=== PATIENT | male | born 1940 | race Hispanic/Latino ===

== ENCOUNTER 2016-08-30 05:43 | Day surgery (SDC) | payer MEDICARE, OTHER ==
[2016-08-30] MEDS ORDERED: NACL 0.9% 500 ML 500 ML ONE (06:16)
[2016-08-30 06:51] LABS: Basophils % (Auto) 0.8 % (0.0-1.8); Eosinophils % (Auto) 2.8 % (0.0-4.3); Hematocrit 39.3 % (35.5-45.6); Hemoglobin 13.2 gm/dl (11.8-15.2); Mean Corpuscular HGB Conc 34 % (32-34); Mean Corpuscular Hemoglobin 30 pg (28-32); Mean Corpuscular Volume 88 fl (84-94); Platelet Count 170 K/mm3 (140-440); Red Blood Count 4.48 M/mm3 (3.65-5.03); White Blood Count 4.2 K/mm3 (4.5-11.0)
[2016-08-30] MEDS ORDERED: NACL 0.9% 500 ML 500 ML IV SCH (07:00)
[2016-08-30 07:01] LABS: INR 1.06 (0.87-1.13)
[2016-08-30 08:08] LABS: Anion Gap 17 mmol/L; Blood Urea Nitrogen 13 mg/dL (9-20); Calcium 8.8 mg/dL (8.4-10.2); Carbon Dioxide 24 mmol/L (22-30); Chloride 103.6 mmol/L (98-107); Glucose 115 mg/dL (75-100); Potassium 4.3 mmol/L (3.6-5.0); Sodium 140 mmol/L (137-145)
[2016-08-30] MEDS ORDERED: HEPARIN/NS 5000 UNIT/500ML(CATH LAB) 1,000 ML IR ONE (08:21)
[2016-08-30] MEDS ORDERED: XYLOCAINE 2% INFILTRATI ONE (08:22)
[2016-08-30] MEDS ORDERED: HEPARIN 10,000 UNITS/10 ML ONE (08:22)
[2016-08-30] MEDS ORDERED: CALAN ONE (08:22)
[2016-08-30] MEDS ORDERED: VERSED ONE (08:22)
[2016-08-30] MEDS ORDERED: SUBLIMAZE ONE (08:23)
[2016-08-30] MEDS: NITROGLYCERIN SYRINGE 3 ML ONE ×2 (08:55→08:56)
--- NOTE | 2016-08-30 09:09 | Short Stay Summary ---
Short Stay Documentation Date of service: 08/30/16 - History H&P: obtained from office - Allergies and Medications Current Medications: Allergies No Known Allergies Allergy (Verified 11/10/13 01:47) Home Medications Medication Instructions Recorded Confirmed Last Taken Type Aspirin [Adult Low Dose Aspirin EC] 81 mg PO DAILY 08/30/16 08/30/16 08/30/16 06 :00 History 324mg Levothyroxine [Synthroid] 112 mcg PO QAM 08/30/16 08/30/16 08/30/16 06:00 History Simvastatin [Zocor TAB] 10 mg PO DAILY 08/30/16 08/30/16 08/29/16 History Ubidecarenone [Coq-10] 100 mg PO DAILY 08/30/16 08/30/16 08/29/16 History Active Medications Sodium Chloride (Nacl 0.9% 500 Ml) 500 mls @ 50 mls/hr IV DIRECT MELITA Stop: 08/30/16 16:59 Last Admin: 08/30/16 07:13 Dose: 50 mls/hr - Physical exam General appearance: no acute distress Integumentary: no rash HEENT: Atraumatic Lungs: Clear to auscultation Breasts: deferred Heart: Regular rate Gastrointestinal: normal Male Genitourinary: deferred Female Genitourinary: deferred Rectal Exam: deferred Extremities: no ischemia Neurological: Normal gait - Brief post op/procedure progress note Date of procedure: 08/30/16 Pre-op diagnosis: Syncope, abnormal stress test Post-op diagnosis: same Procedure: LHC and LV gram Anesthesia: MAC Findings: See report Surgeon: JUANA ZUNIGA Estimated blood loss: none Pathology: none Condition: stable - Hospital course Hospital course: Uneventful - Disposition Condition at discharge: Good Disposition: DC-01 TO HOME OR SELFCARE Short Stay Discharge Plan Activity: advance as tolerated Weight Bearing Status: Partial Weight Bearing Diet: low cholesterol, low salt Wound: keep clean and dry Follow up with: ELDA BO MD [Primary Care Provider] - 7 Days
--- NOTE | 2016-08-30 10:24 | Prelim Cardiac Cath Report ---
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
[2016-08-30 11:37] VITALS: BP 166/88
--- NOTE | 2016-09-20 12:35 | Cardiac Catherization Report ---
LEFT HEART CATHETERIZATION INDICATION FOR PROCEDURE: Chest pain, abnormal myocardial perfusion scan. ORDERING PHYSICIAN: Dr. Brenda Loya. PROCEDURES PERFORMED: 1. Selective left and right coronary angiography. 2. Left ventriculography. DESCRIPTION OF PROCEDURE: After obtaining written consent, the patient was draped using sterile technique. A 2% lidocaine was injected into the right wrist. A 5-Tanzanian vascular sheath was inserted into the right radial artery. A 5-Tanzanian JL3.5 catheter was used to selectively engage the left coronary artery. A 5-Tanz[place] JR4 catheter was used to selectively engage the right coronary artery. A 5-T[place] JR4 catheter was used to hand inject the left ventriculogram. No complications occurred during the procedure. Hemostasis was achieved at the end of the procedure using manual pressure. ESTIMATED BLOOD LOSS: Minimal. SPECIMEN REMOVED: None. FINDINGS: HEMODYNAMICS: The aortic pressure was 125/73 with an LV systolic pressure of 123 mmHg and left ventricular end-diastolic pressure of 16 mmHg. No significant gradient was noted across left ventricular outflow tract. CARDIAC STRUCTURES: The left ventricle is normal in size and systolic function with an ejection fraction estimated at 60%. No regional wall motion abnormalities. CORONARY ANATOMY: 1. This is a right dominant circulation. The left main is angiographically normal. 2. The LAD has mild diffuse nonobstructive luminal irregularities. There is evidence of a 60% stenosis of the ostium of the first diagonal artery. 3. The left circumflex artery has mild luminal irregularities. 4. The right coronary artery has an anomalous takeoff from the left cusp with evidence of 30% tubular stenosis proximally. IMPRESSION: 1. 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 2. Normal left ventricular size and systolic function. 3. LVEDP measured at 16 mmHg. RECOMMENDATIONS: Continue medical therapy for underlying nonobstructive coronary artery disease. I doubt that this is the reason why he is passing out; however, a further evaluation is needed, consider CTA coronaries to evaluate the course of the right coronary artery. JOB# [id number] NICKI/EDIS
== END 2016-08-30 11:35 | disposition home or self-care (01) ==
LOC: OPU 05:43
PROVIDERS: ATTEND Internal Medicine
DX: I25.10 Atherosclerotic heart disease of native coronary artery without angina pectoris (principal); F41.9 Anxiety disorder, unspecified; F32.9 Major depressive disorder, single episode, unspecified; M10.9 Gout, unspecified; E03.9 Hypothyroidism, unspecified; G47.00 Insomnia, unspecified; E78.5 Hyperlipidemia, unspecified; Z79.899 Other long term (current) drug therapy; Z79.82 Long term (current) use of aspirin; Z85.89 Personal history of malignant neoplasm of other organs and systems; Z72.89 Other problems related to lifestyle; Z82.49 Family history of ischemic heart disease and other diseases of the circulatory system
CPT/HCPCS: 36415; 80048; 85025; 85610; 85730; 93005; 93010; 93458; C1894; J1644; J2250; J3010; J7040; Q9967

== ENCOUNTER 2016-09-25 07:35 | Day surgery (SDC) | payer MEDICARE, OTHER ==
[2016-09-25] MEDS ORDERED: NITROSTAT SL ONE (08:27)
[2016-09-25] MEDS ORDERED: LOPRESSOR IV ONE (08:28)
[2016-09-25 09:00] LABS: Anion Gap 14 mmol/L; BUN/Creatinine Ratio 21.25; Blood Urea Nitrogen 17 mg/dL (9-20); Calcium 8.8 mg/dL (8.4-10.2); Carbon Dioxide 25 mmol/L (22-30); Chloride 101.8 mmol/L (98-107); Glucose 94 mg/dL (75-100); Potassium 4.2 mmol/L (3.6-5.0); Sodium 137 mmol/L (137-145)
[2016-09-25] MEDS ORDERED: NACL ONE (09:29)
[2016-09-25 09:56] VITALS: BP 102/63
--- NOTE | 2016-09-26 08:28 | Cat Scan Report ---
CT ANGIO HEART STRUCTURE/MORPHOLOGY/FUNCTION: INDICATION: Congenital malformation of heart. COMPARISON: 03/20/[address] report. FINDINGS: A limited chest CT scan was carried out for evaluation of heart structure, morphology and function. This dictation is for the non-cardiac portion of the chest which was included. No definite hilar or mediastinal mass. Moderate, approximately 5 cm transverse hiatal hernia. Mild bibasilar scarring. No significant abnormality seen in included upper abdomen. IMPRESSION: Findings, as above. Please note that this exam is now available for interpretation. Thank you for the opportunity to participate in this patient's care.
== END 2016-09-25 10:00 | disposition home or self-care (01) ==
LOC: CATHLABREC 07:35 → EDSTATUS 08:45 → CATHLABREC 10:00
PROVIDERS: ATTEND Internal Medicine Cardiovascular Disease
DX: Q24.9 Congenital malformation of heart, unspecified (principal); K44.9 Diaphragmatic hernia without obstruction or gangrene
CPT/HCPCS: 36415; 75574; 80048; Q9967

== ENCOUNTER 2016-09-27 08:20 | Day surgery (SDC) | payer MEDICARE, OTHER ==
[2016-09-27] MEDS ORDERED: NACL 0.9% 500 ML 500 ML IV SCH (10:00)
[2016-09-27] MEDS ORDERED: NITROSTAT SL ONE ×2 (11:33→11:36)
[2016-09-27] MEDS ORDERED: ADRENALIN ONE (11:34)
[2016-09-27] MEDS ORDERED: ATROPINE 0.1% (CARDIAC) ONE ×2 (11:34)
--- NOTE | 2016-09-27 12:05 | Short Stay Summary ---
Short Stay Documentation Date of service: 09/27/16 - History H&P: obtained from office - Allergies and Medications Current Medications: Allergies No Known Allergies Allergy (Verified 11/10/13 01:47) Home Medications Medication Instructions Recorded Confirmed Last Taken Type Aspirin [Adult Low Dose Aspirin EC] 81 mg PO DAILY 08/30/16 09/27/16 09/24/16 History 81mg Levothyroxine [Synthroid] 112 mcg PO QAM 08/30/16 09/27/16 09/27/16 06:30 History Simvastatin [Zocor TAB] 40 mg PO DAILY 08/30/16 09/27/16 09/26/16 History 40mg Ubidecarenone [Coq-10] 100 mg PO DAILY 08/30/16 09/27/16 09/26/16 History 100mg Active Medications Sodium Chloride (Nacl 0.9% 500 Ml) 500 mls @ 50 mls/hr IV DIRECT MELITA - Physical exam General appearance: no acute distress Integumentary: no rash HEENT: Atraumatic Lungs: Clear to auscultation Breasts: deferred Heart: Regular rate Gastrointestinal: normal Male Genitourinary: deferred Female Genitourinary: deferred Rectal Exam: deferred Extremities: no ischemia Neurological: Normal gait - Brief post op/procedure progress note Date of procedure: 09/27/16 Pre-op diagnosis: Syncope Post-op diagnosis: same Procedure: TTT Anesthesia: none Findings: see report Surgeon: JUANA ZUNIGA Estimated blood loss: none Pathology: none Condition: stable - Hospital course Hospital course: uneventful - Disposition Condition at discharge: Good Disposition: DC-01 TO HOME OR SELFCARE Short Stay Discharge Plan Activity: advance as tolerated Weight Bearing Status: Weight Bear as Tolerated Diet: low fat, low cholesterol, low salt Follow up with: ELDA BO MD [Primary Care Provider] - 7 Days
[2016-09-27 12:13] VITALS: BP 138/79
--- NOTE | 2016-09-28 02:40 | Procedure Note ---
ORDERING PHYSICIAN: Dr. Brenda Loya. INDICATION FOR THE PROCEDURE: Anomalous right coronary artery. DESCRIPTION OF PROCEDURE: After obtaining written consent, the patient was positioned securely to the CT scan table. The forest practices field coordinator images were obtained from the level of the trachea to the level of the diaphragm. The heart rate during 3D acquisition was 53 beats per minute. The patient received 0.4 mg of sublingual nitroglycerin for coronary vasodilation. The patient received a total of 100 mL of Omnipaque 350 contrast. No complications occurred during the procedure. FINDINGS: 1. This is an excellent quality [address] The total calcium score is 102.52 indicating moderate plaque burden. 2. This is a right dominant circulation. 3. The left main is a short vessel. There is evidence of nonobstructive heterogeneous plaque noted throughout the left main, predominantly in the distal segment. 4. The left anterior descending artery exhibits evidence of mid segment diffuse soft plaque. These are nonobstructive. There is evidence of an ostial soft plaque involving the diagonal artery with approximately 50% luminal compromise. The distal LAD is a very small caliber vessel. 5. The left circumflex artery is a large caliber vessel. There is evidence of nonobstructive calcified plaque noted in the proximal segment of the second obtuse marginal. 6. The ramus intermedius is a moderate size caliber vessel. There is evidence of a nonobstructive soft ostial plaque noted. 7. The right coronary artery originates from the left coronary cusp. The right coronary artery is anomalous, inter-arterially between the pulmonary artery and the aorta. There is approximately 50% area reduction in the proximal segment of the right coronary artery. Compared to the more mid and distal segments. Mild nonobstructive calcified plaque noted, otherwise in the mid right coronary artery. 8. The aortic valve is trileaflet. The aortic root is normal in size with an aortic diameter measuring 33.4 mm at the sinus of Valsalva. Mild scattered calcification noted throughout the descending aorta, the descending aorta measures 24.1 mm in diameter. 9. The pulmonary artery is normal in caliber. 10. Four pulmonary veins are visualized entering the left atrium. No filling defects noted in the left atrial appendage. 11. No evidence of pericardial effusion. 12. Normal left ventricular size and wall motion with an ejection fraction measured at 78%. Extracardiac structures as interpreted by the over-reading radiologist. There is a transverse 5 cm hiatal hernia as well as mild bibasilar atelectasis. IMPRESSION: 1. Evidence of moderate plaque burden with the calcium score of 100 and 102 and an exact percentile ranking of 7%. 2. 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 The proximal right coronary artery courses inter-arterially between the aorta and the main pulmonary artery. There is a 50% area of luminal reduction of the proximal right coronary artery compared to the mid and distal segment. 3. Nonobstructive heterogeneous plaque noted throughout the left coronary circulation with an approximately 50% ostial soft plaque in the first diagonal artery. 4. The visualized segments of the aorta are within normal caliber. IMPRESSION: A 5 cm transverse hiatal hernia with mild bibasilar atelectasis is noted. RECOMMENDATION: Follow up with referring meat smoker. JOB# [id number] NICKI/EDIS
--- NOTE | 2016-09-28 05:53 | Tilt Table Report ---
INDICATION: Syncope. ORDERING PHYSICIAN: Brenda Loya M.D. DESCRIPTION OF PROCEDURE: After obtaining consent, the patient was brought to the computer lab para professional area and secured to the tilt table test. The patient's baseline blood pressure was 139/71 with a heart rate of 79 beats per minute. The patient was tilted to 85 degrees from horizontal. Immediately after tilting, his blood pressure was 148/83 with a heart rate of 67 beats per minute. The patient was kept in a vertical position for 10 minutes at the end of which his blood pressure was 169/96 with a heart rate of 73 beats per minute. The patient was subsequently given 0.4 mg of sublingual nitroglycerin. His lowest recorded blood pressure after nitroglycerin was 110/65 and his highest recorded heart rate was 88 beats per minute. There was no evidence of bradyarrhythmias or tachyarrhythmias. The patient did report some dizziness; however, no episode of syncope was recorded. The patient was tilted back to horizontal. His blood pressure at the end of the procedure was 112/73 with a heart rate of 70 beats per minute, sinus rhythm. IMPRESSION: This is a negative tilt table test with no evidence of a cardioinhibitory or vasodepressor response. RECOMMENDATION: Follow up with referring electrical manager. JOB# [id number] NICKI/EDIS
== END 2016-09-27 12:30 | disposition home or self-care (01) ==
LOC: CATHLABREC 08:20
PROVIDERS: ATTEND Internal Medicine
DX: R55 Syncope and collapse (principal); I25.10 Atherosclerotic heart disease of native coronary artery without angina pectoris; F41.9 Anxiety disorder, unspecified; F32.9 Major depressive disorder, single episode, unspecified; G47.00 Insomnia, unspecified; M10.9 Gout, unspecified; E05.90 Thyrotoxicosis, unspecified without thyrotoxic crisis or storm; E78.5 Hyperlipidemia, unspecified; Z79.82 Long term (current) use of aspirin; Z79.899 Other long term (current) drug therapy; Z98.890 Other specified postprocedural states; Z72.89 Other problems related to lifestyle
CPT/HCPCS: 93660; J0461; J7040; J0171

== ENCOUNTER 2016-10-22 15:18 | Outpatient (CLI) | payer MEDICARE, OTHER ==
[2016-10-22 16:13] LABS: Blood Urea Nitrogen 14 mg/dL (9-20)
== END 2016-10-22 15:19 | disposition home or self-care (01) ==
LOC: MRI 15:18
PROVIDERS: ATTEND Specialist
DX: I65.23 Occlusion and stenosis of bilateral carotid arteries (principal); R56.9 Unspecified convulsions; E78.00 Pure hypercholesterolemia, unspecified; I50.9 Heart failure, unspecified; J18.9 Pneumonia, unspecified organism; E03.9 Hypothyroidism, unspecified; Z79.899 Other long term (current) drug therapy; Z87.898 Personal history of other specified conditions
CPT/HCPCS: 36415; 82565; 84520